=== PATIENT | female | born 1930 | race Caucasian/White ===

== ENCOUNTER 2019-03-11 17:27 | Inpatient (IN) ==
--- NOTE | 2019-03-11 17:56 | XRay Report ---
XR chest 1V portable CLINICAL HISTORY: SOB COMPARISON STUDY: 06/03/2018 FINDINGS: Postsurgical changes involve the left breast with left axillary and left breast surgical cl ips. There is a probable left breast implant. The heart is enlarged. The patient is hyperinflated. Th ere is no failure. There is no focal pulmonary consolidation. No pleural effusions are visualized.[ IMPRESSION: Mild cardiomegaly and hyperinflation. No active disease in the chest. Electronically signed by: James Kaba M.D. 03/11/2019 5:55 PM
[2019-03-11] MEDS ORDERED: NITROGLYCERIN 2% OINTMENT 30GM TUBE EXT STA (18:01)
[2019-03-11] MEDS ORDERED: NITROGLYCERIN SL 0.4 MG/TAB TAB SL STA (18:01)
[2019-03-11 18:06] LABS: Basophils # (auto) 0.04 K/uL (0-0.2); Basophils % (auto) 0.2 %; Eosinophils # (auto) 0.22 K/uL (0-0.5); Eosinophils % (auto) 1.2 %; Hematocrit (blood only) 41.9 % (37-47); Hemoglobin 14.1 g/dL (12.0-16.0); Immature Granulocytes # (auto) 0.05 K/uL (0.00-0.02); Immature Granulocytes % (auto) 0.3 %; Lymphocytes # (auto) 1.32 K/uL (1.2-3.4); Lymphocytes % (auto) 7.1 %; Mean Corpuscular Hgb Conc 33.7 g/dL (32-36); Mean Corpuscular Volume 90.3 fL (80-100); Mean Platelet Volume 9.1 fL (7.4-10.4); Monocytes # (auto) 1.34 K/uL (0.11-0.59); Monocytes % (auto) 7.3 %; Neutrophils % (auto) 83.9 %; Platelet Count 283 K/uL (130-400); RDW Standard Deviation 46.2 fL (36.4-46.3); Red Blood Count 4.64 M/uL (4.2-5.4); White Blood Count 18.47 K/uL (4.8-10.8)
[2019-03-11 18:25] LABS: Alanine Aminotransferase 15 U/L (12-78); Albumin Level 3.7 gm/dl (3.4-5.0); Aspartate Aminotransferase 13 U/L (15-37); BUN Creatinine Ratio 16.5 (10-20); Blood Urea Nitrogen 19 mg/dl (7-18); Calcium 9.9 mg/dl (8.5-10.1); Carbon Dioxide 27 mmol/L (21-32); Chloride 101 mmol/L (98-107); Est GFR (African American) 50.3; Est GFR (Non-African American) 43.4; Glucose 132 mg/dl (70-99); Potassium 3.8 mmol/L (3.5-5.1); Sodium 135 mmol/L (136-145)
[2019-03-11 18:45] LABS: Alkaline Phosphatase 93 U/L (45-117); Bilirubin,Total 0.5 mg/dl (0.2-1); Globulin 3.6 gm/dl (2.5-4.0); Total Protein 7.3 gm/dl (6.4-8.2); Troponin I 0.212 ng/ml (0-0.045)
[2019-03-11] MEDS: NITROGLYCERIN SL 0.4 MG/TAB TAB SL PRN ×2 (18:46→18:53)
[2019-03-11] MEDS ORDERED: fentaNYL citrate 100 MCG/2 ML VIAL ONE (19:21)
[2019-03-11] MEDS ORDERED: HEPARIN (PORCINE) 1000 UNIT/ML 10 ML (CATH LAB USE ONLY) ONE (19:21)
[2019-03-11] MEDS ORDERED: NiCARDipine HCL INJ 2.5 MG/ML 10 ML AMP ONE (19:21)
[2019-03-11] MEDS ORDERED: NITROGLYCERIN/D5W 100MCG/ML 20ML SYR ONE (19:22)
[2019-03-11] MEDS ORDERED: MIDAZOLAM HCL 1 MG/ML 2ML VIAL ONE (19:22)
--- NOTE | 2019-03-11 19:51 | Pre Anesthesia Assessment ---
Date of Service March 11, 2019 Pre Sedation Assessment Vital Signs Temp Pulse Resp BP Pulse Ox 03/11/19 19:30 66 20 153/68 H 96 03/11/19 19:22 69 27 H 96 03/11/19 19:21 70 26 H 132/95 97 03/11/19 19:00 63 23 123/54 L 91 03/11/19 18:30 74 20 164/70 H 95 03/11/19 18:11 81 21 165/112 H 98 03/11/19 18:09 79 22 98 03/11/19 18:00 80 24 178/85 H 97 03/11/19 17:46 84 L 03/11/19 17:43 93 03/11/19 17:33 97.9 F 81 18 171/82 H 93 Cardiovascular RRR, no murmur, no edema Respiratory normal respiratory effort, lungs clear to auscultation Pre-Sedation Airway Assessment Smoking Status: Never smoker Hx Sleep Apnea: No Hx Difficult Intubation: No Short, Thick Neck: No Thyromental Distance: > or= 3.5 Finger Breadths Mallampati Class: III ASA: ASA3 Procedure Planning Contraindications for Sedation: none Current Medications Reviewed: Yes Notes The planned sedation has been discussed with the patient. Informed Consent was obtained. I have identified the patient, determined the appropriateness of sedation and have assessed the patient immediately prior to the procedure. All medicine(s) and interventions are by my order.
--- NOTE | 2019-03-11 19:53 | Cardiology Consultation ---
Date of Consultation March 11, 2019 Assessment & Plan (1) Elevated troponin: 2. Suspected ACS 3. Coronary artery disease with prior inferior UT, ischemic cardiomyopathy 4. Paroxysmal atrial fibrillation on Eliquis 5. Hypertension Presentation concerning for acute UT and agree with proceeding with emergent cardiac catheterization and possible PCI. No apparent contraindications to procedure. Discussed risks, benefits, alternatives of procedure with patient and they are willing to proceed. Further recommendations pending findings of coronary angiography. History of Present Illness History of Present Illness Mrs. Lew is a 88-year-old history of coronary artery disease post prior inferior UT in 2007, ischemic heart myopathy with EF 4045% and residual inferior wall motion abnormality, moderate MR, paroxysmal atrial fibrillation, chronic left bundle branch block, hypertension, dyslipidemia who was seen emergently in the ED for concern for acute UT. Patient is followed by Dr. Mayo for her cardiac care was last seen in clinic 5 days ago. She currently resides at [facility]. Patient was in her usual state of health this afternoon when developed acute onset shortness of breath with mild diffuse chest pain. She presented to the ED was hypertensive to the 170s, requiring 4 L nasal cannula to maintain O2 sats in 90s, tachycardic to the 110s. EKG showed sinus rhythm with left bundle branch block and more acute peaked discordant ST changes anteriorly. Troponin elevated at 0.21. Given sublingual nitroglycerin in the ED with some improvement in symptoms but persistent chest pain radiating to back and heart alert activated. Allergies Allergy/AdvReac Type Severity Reaction Status Date / Time acetaminophen [From Lortab] Allergy Unknown Unverified 03/11/19 19:41 celecoxib [From Celebrex] Allergy Unknown Unverified 03/11/19 19:41 hydrocodone [From Lortab] Allergy Unknown Unverified 03/11/19 19:41 latex Allergy Unknown Unverified 03/11/19 19:41 ramipril [From Altace] Allergy Unknown Unverified 03/11/19 19:41 rosuvastatin [From Crestor] Allergy Unknown Unverified 03/11/19 19:41 simvastatin [From Zocor] Allergy Unknown Unverified 03/11/19 19:41 sotalol [From Betapace] Allergy Unknown Unverified 03/11/19 19:41 topiramate Allergy Unknown Unverified 03/11/19 19:41 verapamil Allergy Unknown Unverified 03/11/19 19:41 morphine AdvReac Nausea Verified 03/06/19 11:22 Patient History Medical History Ileus Ischemic cardiomyopathy LBBB (left bundle branch block) (Acute) Paroxysmal atrial fibrillation (Chronic) 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) CAD (coronary artery disease) GERD (gastroesophageal reflux disease) HTN (hypertension) (Chronic) Breast cancer Atrial fibrillation LBBB (left bundle branch block) Myocardial infarct Surgical History History of intestinal surgery (Resolved) History of parathyroid surgery (Resolved) Family History Other Family history non-contributory Social History Preferred Language: Congolese Communication Ability: Effective Revenue Specialist Required: No Beliefs That Will Affect Care: None marital status: / Current Living Situation: Personal Care Facility Feels Safe at Home: Yes Smoking Status: Never smoker Hx Alcohol Use: No Hx Substance Use: No Review of Systems Review of Systems: Not obtained in the setting of emergent situation Physical Exam Physical Exam: General: Uncomfortable HEENT: Sclerae anicteric, mucous membranes moist Lungs: Clear to auscultation few crackles at bases Cardiac: Regular rate and rhythm, 2/6 holosystolic murmur heard best at the apex Abdomen: Soft, nontender, nondistended, positive bowel sounds. Extremities: Warm, well perfused, no edema. 2+ radial pulses Skin: No rashes or lesions. Neuro: Nonfocal Psych: Alert orient x3, normal affect and mood Results & Data Vital Signs (Past 12 Hours) Vital Signs Temp Pulse Resp BP Pulse Ox 03/11/19 19:30 66 20 153/68 H 96 03/11/19 19:22 69 27 H 96 03/11/19 19:21 70 26 H 132/95 97 03/11/19 19:00 63 23 123/54 L 91 03/11/19 18:30 74 20 164/70 H 95 03/11/19 18:11 81 21 165/112 H 98 03/11/19 18:09 79 22 98 03/11/19 18:00 80 24 178/85 H 97 03/11/19 17:46 84 L 03/11/19 17:43 93 03/11/19 17:33 97.9 F 81 18 171/82 H 93 PG Care Time/CCT Total # of Minutes Spent Total Time Spent with Patient: Total time spent is greater than 50% in coordination of care (as documented) at patient's floor/unit and/or counseling patient:
--- NOTE | 2019-03-11 20:46 | Post Anesthesia Assessment ---
Date of Service March 11, 2019 Post Sedation Assessment Vital Signs Temp Pulse Resp BP Pulse Ox 03/11/19 19:30 66 20 153/68 H 96 03/11/19 19:22 69 27 H 96 03/11/19 19:21 70 26 H 132/95 97 03/11/19 19:00 63 23 123/54 L 91 03/11/19 18:30 74 20 164/70 H 95 03/11/19 18:11 81 21 165/112 H 98 03/11/19 18:09 79 22 98 03/11/19 18:00 80 24 178/85 H 97 03/11/19 17:46 84 L 03/11/19 17:43 93 03/11/19 17:33 97.9 F 81 18 171/82 H 93 Recovery Score Activity: Moves 4 extremities Respiration: Deep Breath/Cough Circulation: +/-20% PreAnes Value Consciousness: Fully Awake Oxygen Saturation: O2 needed for >90% Post Sedation Plan On clinical assessment, the patient appears to have tolerated the sedation without complications. Patient is recovering as anticipated. Patient will continue to be monitored by nursing and may be discharged when sedation discharge criteria are met per below protocol. Upon Completions of procedure and additional 15 minutes continue every 5 minute vital signs and the P.A.R. score; then discharge to a Phase I or Fast Track to Phase II per the following guidelines: * Discharge Patient to appropriate Phase II area if PAR is 8 or greater or return to pre- procedure baseline. The post - procedure orders will be as directed. * If PAR score is less than 8 or not return to pre-procedure baseline then patient will follow Phase I monitoring till PAR is reached for Phase II. The Phase I may be done in procedure room or may call to secure a Phase I area. * If naloxone or flumazenil are used for reversal, hold in Phase I for continued monitoring from when last reversal dose was given for a minimum of 60 minutes or longer pending the nurse and/or physician discretion of patient condition before discharge to Phase II. Please call the Sedation Physician to re-evaluate and complete post-note for discharge to Phase II area. Do NOT discharge from procedure sedation or Phase 1 until post- sedation evaluation note is complete by procedure /sedation MD Sedation Discharge Instructions to be given to the patient at discharge to home.
[2019-03-11] MEDS ORDERED: ONDANSETRON INJ 2 MG/ML 2 ML VIAL IV PRN (20:55)
[2019-03-11] MEDS ORDERED: ACETAMINOPHEN 325 MG TAB PO PRN (20:55)
--- NOTE | 2019-03-11 20:55 | Cardiac Catheterization ---
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 Cardiac Status Clinical evaluation leading to the procedure CAD Presenation: Non STEMI Anginal Classification: CCS IV Heart Failure: NYHA Class: CCS IV Cardiogenic Shock within 24 Hours: No Cardiac Arrest within 24 Hours: No Imaging Studies Past 6 Months: No Stress Studies Past 6 Months: No Diagnostic Physicians Name: Juan Mackenzie MD Status: Urgent Closure Device Percutaneous Entry Location: Radial Closure Device: Radial Band Recommendations: Medical Therapy and/or Counseling Intraprocedure Events Significant Disection: No Perforation: No Cardiac Cath Procedure Full Procedure Date March 11, 2019 Pre-Procedure Diagnosis Pre-Procedure Diagnosis: Acute Coronary Syndrome AUC Score AUC Score: 8 Post-Procedure Diagnosis Post-Procedure Diagnosis: Moderate CAD, Decreased LV Systolic Function and Normal Intracardiac Pressures Procedure(s) Performed Procedure(s) Performed: Coronary Angiography, Left Heart Cath and LV Angiography Geometry Teacher Juan Mackenzie MD Housekeeper Head(s) Lulu Estimated Blood Loss Estimated Blood Loss: 10 Medication(s) Medication(s): Fentanyl, Heparin, Lidocaine 1%, Nicardipine, Nitroglycerin and Versed Summary of Findings Indication: Suspected ACS Access: 6 Fr right radial artery Catheters: Thomas, pigtail Findings: LM -10 to 20% ostial stenosis, short length LAD -moderate caliber vessel, proximal luminal irregularities, 40% mid segment stenosis at takeoff of second diagonal, distal luminal irregularities as wraps around apex. Small first and second diagonal without significant disease. Circumflex -moderate caliber, mid segment luminal irregularities, OM1 with 40 to 50% proximal stenosis RCA -dominant, moderate caliber, 20 to 30% earlymid segment disease, distal luminal irregularities, small PDA without significant disease. LVEDP -5 LVEF 40 to 45%, apex is akinetic Arterial Closure: TR band Summary: 1. Mild to moderate nonobstructive coronary artery disease -40 to 50% proximal OM1 40% mid LAD at takeoff of second diagonal 20 to 30% earlymid RCA 2. Normal intracardiac filling pressure 3. Mild LV dysfunction, EF 40 to 45% with apical akinesis. 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 Recommendations: Admit to telemetry for further observation Trend troponin until peak Repeat echocardiogram in the a.m. Resume Eliquis tomorrow morning Continue losartan Add beta-dustin Assess need for additional diuretics tomorrow Continued ASCVD risk factor modification Hemodynamics Rest Ao:: 128/49/78 Final Ao: 151/50/89 LV: 152/5 Recommendations Recommendations: Medical Therapy and/or Counseling Specimens Specimens: None Radiation Exposure (mGy) 339 Contrast (mls) 65 Fluids (cc crystalloids) Fluids (cc crystalloids): 43 Drains Drains: None Anesthesia Moderate Procedural Complication(s) None Disposition PCU
[2019-03-11] MEDS ORDERED: SODIUM CHLORIDE 0.9% 500 ML IV SCH (21:00)
[2019-03-11] MEDS ORDERED: BENZONATATE 100 MG CAPSULE PO PRN (21:00)
[2019-03-11] MEDS ORDERED: NITROGLYCERIN SL 0.4 MG/TAB TAB SL PRN (21:00)
[2019-03-11] MEDS ORDERED: MAGNESIUM HYDROXIDE SUSP 30 ML UDC PO PRN (21:00)
[2019-03-11] MEDS ORDERED: guaiFENesin 600 MG TABCR PO PRN (21:00)
[2019-03-11] MEDS ORDERED: ALBUTEROL HFA 8 GM INHALER INH PRN (21:00)
[2019-03-11] MEDS ORDERED: DOCUSATE SODIUM 100 MG CAP PO PRN (21:00)
[2019-03-11] MEDS: METOPROLOL TARTRATE 25 MG TAB PO SCH (22:54)
[2019-03-11] MEDS: FLUTICASONE PROPIONATE NA SPR 16 GM BTL SCH (22:54)
[2019-03-11] MEDS: MONTELUKAST SODIUM 10 MG TABLET PO SCH (22:54)
--- NOTE | 2019-03-11 22:59 | Emergency Department Note ---
Entered by Kylah Pritchett acting as a scribe for ED Provider Note CHIEF COMPLAINT: Shortness of Breath HISTORY OF PRESENT ILLNESS: The patient is an 88 year old female who presents to the Emergency Room with complaints of shortness of breath that started about 2 hours [employer]. She does not wear O2 regularly, but was placed on it for comfort by EMS. She also complains of left sided chest and back pain. Her son states she has had 1 heart attack previously. She does take daily Eliquis. Her son also notes she was recently seen in the ED for bloating and constipation, but the patient states her abdomen feels better. Pt denies LOC, headache, fevers, chills, diaphoresis, visual changes, neck pain, nausea, vomiting, abdominal pain, diarrhea, melena, hematochezia, urinary symptoms, numbness, weakness, lymphadenopathy, rash, or other complaints. REVIEW OF SYSTEMS: See HPI for pertinent positives and negatives. A total of ten systems were reviewed and were otherwise negative. PMHx/PSHx: CAD. GERD. HTN. Breast cancer. Atrial fibrillation. SOCIAL HISTORY: Patient lives at home. PHYSICAL EXAM: GENERAL: Awake, alert, uncomfortable and dyspneic-appearing HENT: Normocephalic, atraumatic. Oropharynx unremarkable. EYES: PERRL. Normal conjunctiva. Sclera non-icteric. NECK: Inspection normal. Non-tender. Supple. No nuchal rigidity. FROM. No masses. RESPIRATORY: Clear to auscultation. No wheezes. No rales. Increased respiratory effort. CARDIAC: Normal rate. Normal rhythm. No murmurs. No rubs. Extremities warm and well perfused. Pulses equal. No JVD. GI: Soft, mild distension. No tenderness to palpation. No rebound or guarding. No masses. RECTAL: Deferred. MUSCULOSKELETAL: Atraumatic. Chest examination reveals no tenderness. The back is symmetrical on inspection without obvious abnormality. There is no CVA tenderness to palpation. No joint edema. LOWER EXTREMITIES: Calves are equal size bilaterally and non-tender. No edema. No discoloration. NEURO: Normal sensorium. No sensory or motor deficits noted. SKIN: No rash or jaundice noted. EMERGENCY DEPARTMENT COURSE: 1758: Past medical records reviewed. The patient was evaluated in room B7, and a complete history and physical examination were performed. 1820: I reevaluated the patient. She states the Nitro has provided some relief. 1820: I discussed the patients case with Dr. Mackenzie, [facility]. He recommends we try to get the patient pain free and call him back if her Troponin is elevated. 1901: I reevaluated the patient. Her pain is better but she is still short of breath. Her Troponin is elevated. Dr. Mackenzie will take her to the microbiology lab technician. MEDICAL DECISION MAKING: Prior records/ancillary studies reviewed. Triage Nursing notes reviewed and agree them. Additional history obtained from the family. The patient's history was concerning for chest pain. Differential diagnosis: Etiologies such as cardiac ischemia, aortic dissection, pulmonary embolism, pneumonia, pneumothorax, musculoskeletal, infections, pericarditis, myocarditis, esophageal rupture, gastrointestinal, as well as others were entertained. Physical examination: As above. ER treatment provided: Supplemental oxygen Nitropaste Sublingual nitroglycerin x3 with incremental improvement to resolution of chest pain. On reassessment the patient felt better. Diagnostic interpretation by me: The electrocardiogram was concerning for acute coronary syndrome in the presence of left bundle branch block by Sgarbossa criteria. Repeat ECG after nitroglycerin and improvement of pain revealed less pronounced ST elevation. 30 ECG was performed after resolution of chest pain with the presence of some mild back pain. ST elevation was resolved. The labs revealed an unremarkable chemistry panel. Patient CBC showed a significant leukocytosis. Troponin was elevated concerning for ACS. Imaging studies: Chest imaging did not reveal any acute disease. Given the patient's presentation, her history and the abnormal ECG as noted above I did consult with Dr. Mackenzie of interventional cardiology. Given the pain and elevated troponin he felt the patient should be treated as a heart alert. Heart alert was called. The team including Dr. Mackenzie evaluated the patient in the emergency department and she was taken emergently to the catheterization suite for further management. Patient and family were pleased with the treatment and she was admitted for further management. IMPRESSION: Acute AL. Elevated troponin Abnormal ECG PLAN: Admit The scribe's documentation has been prepared under my direction and personally reviewed by me in its entirety. I confirm that the note above accurately reflects all work, treatment, procedures, and medical decision making performed by me. CRITICAL CARE: I have personally spent greater than 45 minutes of critical care time in the direct management of this patient. This includes bedside care, interpretation of diagnostic studies, and testing, discussion with consultants, patient, and family members, and other required patient management activities. This 45 minutes is in excess of all separately billable procedures. 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: No Beliefs That Will Affect Care: None marital status: / Current Living Situation: Personal Care Facility Other Information That Helps Us Care for You: No Feels Safe at Home: Yes Safety Concerns: Feels Safe At This Time Smoking Status: Never smoker Hx Alcohol Use: No Hx Substance Use: No Results & Data Vital Signs Vital Signs - 24 hr 03/11/19 17:33 03/11/19 17:43 03/11/19 17:46 Temperature 36.6 C Temperature Source Oral Sepsis Recent Fever Within 48 Hours No Sepsis New/Unexplained Change in Mental Status No Sepsis Action Taken by Nursing No Action Required Pulse Rate 81 Pulse Rate from SpO2 Sensor Respiratory Rate 18 Respiratory Effort / Characteristics Non-Labored Respiratory Depth Normal Blood Pressure 171/82 H Blood Pressure Mean 111 Pulse Oximetry 93 93 84 L Oxygen Delivery Method Room Air Room Air Oxygen Flow Rate 03/11/19 18:00 03/11/19 18:09 03/11/19 18:11 Temperature Temperature Source Sepsis Recent Fever Within 48 Hours Sepsis New/Unexplained Change in Mental Status Sepsis Action Taken by Nursing Pulse Rate 80 79 81 Pulse Rate from SpO2 Sensor 80 81 80 Respiratory Rate 24 22 21 Respiratory Effort / Characteristics Respiratory Depth Blood Pressure 178/85 H 165/112 H Blood Pressure Mean 116 129 Pulse Oximetry 97 98 98 Oxygen Delivery Method Nasal Cannula Oxygen Flow Rate 4 03/11/19 18:30 03/11/19 19:00 03/11/19 19:21 Temperature Temperature Source Sepsis Recent Fever Within 48 Hours Sepsis New/Unexplained Change in Mental Status Sepsis Action Taken by Nursing Pulse Rate 74 63 70 Pulse Rate from SpO2 Sensor 75 62 71 Respiratory Rate 20 23 26 H Respiratory Effort / Characteristics Respiratory Depth Blood Pressure 164/70 H 123/54 L 132/95 Blood Pressure Mean 101 77 107 Pulse Oximetry 95 91 97 Oxygen Delivery Method Nasal Cannula Oxygen Flow Rate 4 03/11/19 19:22 03/11/19 19:30 Temperature Temperature Source Sepsis Recent Fever Within 48 Hours Sepsis New/Unexplained Change in Mental Status Sepsis Action Taken by Nursing Pulse Rate 69 66 Pulse Rate from SpO2 Sensor 68 66 Respiratory Rate 27 H 20 Respiratory Effort / Characteristics Respiratory Depth Blood Pressure 153/68 H Blood Pressure Mean 96 Pulse Oximetry 96 96 Oxygen Delivery Method Oxygen Flow Rate Home Medications Current Medication List: was personally reviewed by me Laboratory Data Attestation: I reviewed the patient's lab results. Result diagrams: 03/11/19 17:57 03/11/19 17:57 Lab Results 03/11/19 03/11/19 Range/Units 17:57 17:57 WBC 18.47 H (4.8-10.8) K/uL RBC 4.64 (4.2-5.4) M/uL Hgb 14.1 (12.0-16.0) g/dL Hct 41.9 (37-47) % MCV 90.3 (80-100) fL MCH 30.4 (25-34) pg MCHC 33.7 (32-36) g/dL RDW Std Deviation 46.2 (36.4-46.3) fL RDW Coeff of Joaquín 14.0 (11.5-14.5) % Plt Count 283 (130-400) K/uL MPV 9.1 (7.4-10.4) fL Immature Gran % (Auto) 0.3 % Neut % (Auto) 83.9 % Lymph % (Auto) 7.1 % [place] % (Auto) 7.3 % Eos % (Auto) 1.2 % Baso % (Auto) 0.2 % Immature Gran # (Auto) 0.05 H (0.00-0.02) K/uL Neut # (Auto) 15.50 H (1.4-6.5) K/uL Lymph # (Auto) 1.32 (1.2-3.4) K/uL [place] # (Auto) 1.34 H (0.11-0.59) K/uL Eos # (Auto) 0.22 (0-0.5) K/uL Baso # (Auto) 0.04 (0-0.2) K/uL Sodium 135 L (136-145) mmol/L Potassium 3.8 (3.5-5.1) mmol/L Chloride 101 (98-107) mmol/L Carbon Dioxide 27 (21-32) mmol/L Anion Gap 8.0 (3-11) BUN 19 H (7-18) mg/dl Creatinine 1.13 (0.6-1.2) mg/dl Est Cr Clr Drug Dosing Not Reportable Est GFR ( Amer) 50.3 Est GFR (Non-Af Amer) 43.4 BUN/Creatinine Ratio 16.5 (10-20) Glucose 132 H (70-99) mg/dl Calcium 9.9 (8.5-10.1) mg/dl Total Bilirubin 0.5 (0.2-1) mg/dl AST 13 L (15-37) U/L ALT 15 (12-78) U/L Alkaline Phosphatase 93 (45-117) U/L Troponin I 0.212 H* (0-0.045) ng/ml Total Protein 7.3 (6.4-8.2) gm/dl Albumin 3.7 (3.4-5.0) gm/dl Globulin 3.6 (2.5-4.0) gm/dl Albumin/Globulin Ratio 1.0 (0.9-2) Lipase 165 (73-393) U/L Administered Medications Fluticasone Propionate (Flonase) 2 sprays NA HS [facility] Stop: 04/10/19 20:59 Last Admin: 03/11/19 22:54 Dose: 2 sprays Documented by: [id number] Sodium Chloride (Nss) 500 mls @ 75 mls/hr IV .[id number] DEANDRA Stop: 03/12/19 03:39 Last Admin: 03/11/19 22:11 Dose: 75 mls/hr Documented by: [id number] Metoprolol Tartrate (Lopressor) 25 mg PO BID DEANDRA Stop: 04/10/19 20:59 Last Admin: 03/11/19 22:54 Dose: 25 mg Documented by: [id number] Montelukast Sodium (Singulair) 10 mg PO PM DEANDRA Stop: 04/10/19 20:59 Last Admin: 03/11/19 22:54 Dose: 10 mg Documented by: [id number] Nitroglycerin (Nitrostat) 0.4 mg SL PRN PRN PRN Reason: Chest Pain Stop: 04/10/19 18:36 Last Admin: 03/11/19 18:53 Dose: 0.4 mg Documented by: [id number] Admin: 03/11/19 18:46 Dose: 0.4 mg Documented by: [id number] Discontinued Medications Fentanyl Citrate (Fentanyl Citrate) Confirm Administered Dose 100 mcg .ROUTE .STK-MED ONE Stop: 03/11/19 19:22 Last Admin: 03/11/19 21:17 Dose: Not Given Documented by: [id number] Heparin Sodium (Porcine) (Heparin Iv Bolus (Glass Designer Use Only)) Confirm Adminis tered Dose 10,000 units .ROUTE .STK-MED ONE Stop: 03/11/19 19:22 Last Admin: 03/11/19 21:16 Dose: Not Given Documented by: [id number] Heparin Sodium/Sodium Chloride (Heparin/Nss 1000 Unit/500ml Flush Bag) Confirm Administered Dose 3,000 units IV .STK-MED ONE Stop: 03/11/19 19:23 Last Admin: 03/11/19 21:16 Dose: Not Given Documented by: [id number] Midazolam HCl (Versed) Confirm Administered Dose 2 mg .ROUTE .STK-MED ONE Stop: 03/11/19 19:23 Last Admin: 03/11/19 21:16 Dose: Not Given Documented by: [id number] Nicardipine HCl (Cardene) Confirm Administered Dose 25 mg .ROUTE .STK-MED ONE Stop: 03/11/19 19:22 Last Admin: 03/11/19 21:17 Dose: Not Given Documented by: [id number] Nitroglycerin (Nitrostat) 0.4 mg SL NOW STA Stop: 03/11/19 18:02 Last Admin: 03/11/19 18:09 Dose: 0.4 mg Documented by: [id number] Nitroglycerin (Nitro-Bid 2%) 0.5 inch EXT NOW STA Stop: 03/11/19 18:02 Last Admin: 03/11/19 18:10 Dose: 0.5 inch Documented by: [id number] Nitroglycerin/Dextrose (Nitroglycerin/D5w 100 Mcg/Ml 20ml Syringe) Confirm Administered Dose 2,000 mcg .ROUTE .STK-MED ONE Stop: 03/11/19 19:23 Last Admin: 03/11/19 21:16 Dose: Not Given Documented by: [id number] Imaging Data Radiologist's Impression: Radiology results as stated below per my review and t he radiologist's interpretation: XR chest 1V portable CLINICAL HISTORY: SOB COMPARISON STUDY: 06/03/2018 FINDINGS: Postsurgical changes involve the left breast with left axillary and left breast surgical clips. There is a probable left breast implant. The heart is enlarged. The patient is hyperinflated. There is no failure. There is no focal pulmonary consolidation. No pleural effusions are visualized. IMPRESSION: Mild cardiomegaly and hyperinflation. No active disease in the chest. Electronically signed by: James Kaba M.D. 03/11/2019 5:55 PM ECG Data Attestation: I personally reviewed and interpreted this ECG as follows: Indication: SOB/dyspnea Rate (beats per minute): 87 Rhythm: sinus rhythm Findings: + 1st degree AV block, + LBBB and + ST elevation (greater than 5 mm in anterior leads and v1, concering for Sgarbossa's criteria ) Additional Comments: 2nd EKG: Sinus rhythm, rate of 72, 1st degree AV, LBBB. Wh en compared to previous, there is improvement of ST segments. Blood Pressure Blood Pressure Findings: Elevated blood pressure Blood Pressure Disposition: further management by hospitalist Discharge Plan Visit Data *Final* Discharge Date/Time: 03/11/19 19:40 Chief Complaint: Shortness of Breath/Dyspnea Stated Complaint: SOB, PAIN ON LEFT SIDE UNDER SHOULDER ED Provider: Alfredito Vaz Discharge Problem: Acute AL Patient Disposition: Admitted As Inpatient Discharge Instructions Interventions: ED Discharge Assessment Last Done: 03/11/19 19:40 The scribe's documentation has been prepared under my direction and personally reviewed by me in its entirety. I confirm that the note above accurately reflects all work, treatment, procedures, and medical decision making performed by me.
[2019-03-12 02:58] LABS: Basophils # (auto) 0.03 K/uL (0-0.2); Basophils % (auto) 0.2 %; Eosinophils # (auto) 0.07 K/uL (0-0.5); Eosinophils % (auto) 0.5 %; Hematocrit (blood only) 36.5 % (37-47); Hemoglobin 12.2 g/dL (12.0-16.0); Immature Granulocytes # (auto) 0.03 K/uL (0.00-0.02); Immature Granulocytes % (auto) 0.2 %; Lymphocytes # (auto) 1.31 K/uL (1.2-3.4); Lymphocytes % (auto) 10.1 %; Mean Corpuscular Hgb Conc 33.4 g/dL (32-36); Mean Corpuscular Volume 88.8 fL (80-100); Mean Platelet Volume 8.9 fL (7.4-10.4); Monocytes # (auto) 0.89 K/uL (0.11-0.59); Monocytes % (auto) 6.8 %; Neutrophils % (auto) 82.2 %; Platelet Count 251 K/uL (130-400); RDW Coefficient of Variation 13.9 % (11.5-14.5); RDW Standard Deviation 45.3 fL (36.4-46.3); Red Blood Count 4.11 M/uL (4.2-5.4); White Blood Count 13.03 K/uL (4.8-10.8)
[2019-03-12 03:17] LABS: BUN Creatinine Ratio 17.9 (10-20); Calcium 9.1 mg/dl (8.5-10.1); Creatinine Clr Calc Pharmacy 37.8 ml/min; Est GFR (African American) 58.3; Est GFR (Non-African American) 50.3; Potassium 3.9 mmol/L (3.5-5.1)
[2019-03-12 03:27] LABS: Troponin I 0.51 ng/ml (0-0.045)
[2019-03-12] MEDS: LEVOTHYROXINE SODIUM 88 MCG TABLET PO SCH (05:57)
--- NOTE | 2019-03-12 06:54 | History and Physical Report ---
DATE OF ADMISSION: 03/12/2019 CHIEF COMPLAINT: Chest pain, shortness of breath, non-ST elevated myocardial infarction, status post cardiac catheterization. HISTORY OF PRESENT ILLNESS: This is an 88-year-old female with past medical history significant for chronic systolic CHF with EF of 40-45%, paroxysmal atrial fibrillation, on Eliquis, hypertension, nonocclusive CAD, chronic left bundle-branch block, breast cancer on left side status post surgery, history of right hip fracture and status post surgery. The patient is from [facility]. She got shortness of breath and chest discomfort around 3:00 p.m. yesterday. Pain is moderate to severity, but shortness of breath was more concerning and she came to the ER. Pain in the chest radiating to back. In the ER, she was hypoxic and required oxygen and she was tachycardic. She says she was sweating when she was coming here. No nausea, no headache, no dizziness, no fever, no chills. EKG done in the ER showed left bundle-branch block and ST changes anteriorly. Troponin was elevated at 0.21. Sublingual nitroglycerin was given in the ER with some improvement of symptoms, but because of persistent chest pain and elevated troponin heart alert was activated and the patient is status post cardiac catheterization, which showed mild to moderate nonobstructive coronary artery disease, 40-50% proximal OM, 40% mid LAD at takeoff of second diagonal, 20-30% mid RCA. EF was 40-45% with apical akinesis. 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 Resting comfortably and hemodynamically stable. No nausea, no vomiting, no abdominal pain. Normal bowel and bladder movements. No blood in stool or black stools. No hematuria or dysuria. No swelling in the legs, no rash. She ambulates okay. After hip fracture, she used a walker and cane, but right now she is walking independently. ALLERGIES: CELEBREX, LATEX, MORPHINE, NORCO, RAMIPRIL, ROSUVASTATIN, SIMVASTATIN, SOTALOL, TOPAMAX, VERAPAMIL. PAST MEDICAL HISTORY: As mentioned above. PAST SURGICAL HISTORY: Tonsillectomy, hysterectomy, bowel surgery, left mastectomy, hip fracture surgery. FAMILY HISTORY: Heart disease. SOCIAL HISTORY: Nonsmoker. No alcohol use. 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 MEDICATIONS: The patient is on Tylenol 650 mg p.o. q. 4 hours p.r.n., albuterol 2 puffs inhalation q. 4 hours p.r.n., amiodarone 200 mg p.o. daily, amlodipine 5 mg p.o. daily, amoxicillin as directed, ascorbic acid 1000 mg p.o. daily, Lipitor 40 mg p.o. daily, benzoate 100 mg p.o. t.i.d. p.r.n., vitamin D 2000 units p.o. daily, vitamin B12 1000 mcg p.o. daily, Mucinex DM 1 tablet p.o. q. 12 hours p.r.n., Dulcolax 200 mg p.o. daily p.r.n., Eliquis 2.5 mg p.o. b.i.d., Lexapro 10 mg p.o. daily, fluticasone propionate intranasal bedtime, Lasix 40 mg p.o. daily, levothyroxine 88 mcg p.o. daily, loratadine 10 mg p.o. daily, losartan 100 mg p.o. daily, magnesium oxide/magnesium chloride 64 mg p.o. b.i.d., milk of magnesia p.r.n., montelukast 10 mg p.o. q.p.m., nitroglycerin 0.4 mg sublingual p.r.n., Protonix 40 mg p.o. daily, potassium chloride 10 mEq p.o. b.i.d., Zantac 150 mg p.o. b.i.d. p.r.n., Ranexa 500 mg p.o. b.i.d. PHYSICAL EXAMINATION: GENERAL: The patient is alert and oriented, not in acute distress. VITAL SIGNS: Temperature 36.5, pulse 50, respiratory rate 22, blood pressure 140/57, oxygen 93% on room air. HEENT: No pallor, no icterus. NECK: No JVD, no neck masses. No carotid bruits. CARDIOVASCULAR: S1, S2 heard, regular rate and rhythm, no murmur, no gallop. RESPIRATORY SYSTEM: Normal AP diameter. No thyromegaly. No wheezing, no crackles. ABDOMEN: Soft, bowel sounds present, nontender. No distention. CENTRAL NERVOUS SYSTEM: Cranial nerves II-XII grossly intact. Nonfocal. EXTREMITIES: Right wrist dressing intact and no drainage seen. No lower extremity edema or erythema seen. LABORATORIES DATA: WBC 13, hemoglobin 12.2, hematocrit 36.5, platelets 251. Sodium 139, potassium 3.9, chloride 105, bicarbonate 28, BUN 18, creatinine 1, serum glucose 92, calcium 9.1, total bilirubin 0.5, AST 13, ALT 15, alkaline phosphatase 93. Troponin 0.2. Lipase 165. Chest x-ray, mild cardiomegaly and hyperinflation. No active disease in the chest. EKG: Initial EKG showing sinus rhythm with first degree AV block at a rate of 70 with left bundle-branch block. ASSESSMENT AND PLAN: This is an 88-year-old female presents with chest pain. 1. Chest pain, non-ST elevated myocardial infarction with elevated troponin of and some questionable EKG changes, status post emergent cardiac catheterization, which showed nonobstructive disease with 40-50% proximal ostial, 40% mid LAD, takeoff of second diagonal, 20-30% mid RCA lesions. Medical management recommended. Beta dustin was added to the regimen. She is already on losartan and Lipitor. 2. History of chronic systolic congestive heart failure, last echo was 40-45% ejection fraction. Currently, Lasix on hold. On losartan. Monitor for any volume overload. 3. History of paroxysmal atrial fibrillation, currently in sinus rhythm, on amiodarone and Eliquis. Beta dustin added. 4. Gastroesophageal reflux disease, on Protonix b.i.d., Zantac p.r.n. 5. Hypertension, on Norvasc, losartan. Currently, B dustin added and amlodipine on hold. 6. Hypothyroidism, on Synthroid. 7. Deep venous thrombosis prophylaxis, sequential compression devices for now. DISPOSITION: Closely monitor in tele floor. Expect to discharge back to [facility] when patient is stable. Social Service to help with discharge planning. [facility]
[2019-03-12] MEDS: CHOLECALCIFEROL 1,000 UNITS TAB PO SCH (07:59)
[2019-03-12] MEDS: ATORVASTATIN 10 MG TAB PO SCH (08:00)
[2019-03-12] MEDS: PANTOprazole 40 MG TAB PO SCH (08:01)
[2019-03-12] MEDS: AMIODARONE 200 MG TAB PO SCH (08:01)
[2019-03-12] MEDS: ASCORBIC ACID 500 MG TAB PO SCH (08:01)
[2019-03-12] MEDS: APIXABAN 2.5 MG TAB PO SCH ×2 (08:01→20:13)
[2019-03-12] MEDS: ESCITALOPRAM OXALATE 10 MG TAB PO SCH (08:01)
[2019-03-12] MEDS: LORATADINE 10 MG TAB PO SCH (08:01)
[2019-03-12] MEDS: LOSARTAN POTASSIUM 50 MG TAB PO SCH (08:01)
[2019-03-12] MEDS: METOPROLOL TARTRATE 25 MG TAB PO SCH ×2 (08:02→20:34)
[2019-03-12] MEDS: CYANOCOBALAMIN 500 MCG TABLET (VITAMIN B-12) PO SCH (08:02)
--- NOTE | 2019-03-12 10:04 | Cardiology Progress Note ---
Date of Service March 12, 2019 Assessment & Plan (1) Elevated troponin: Suggestive of an acute coronary syndrome, however, coronary anatomy showed no obstructive lesion. Consider takotsubo syndrome. Metoprolol has been added to her medical regimen, however, she demonstrates significant bradycardia. This medication may not be well tolerated. (2) CAD (coronary artery disease): Catheterization noted to be 10-20% left main, 40% mid LAD, 40-50% OM1, and a 20-30% mid RCA. (3) Ischemic cardiomyopathy: Left ventricular ejection fraction moderately depressed at 35-40% with apical akinesis and inferior hypokinesis. Previous ejection fraction estimated at 40-45% with apical akinesis. Will likely repeat an echocardiogram as an outpatient. (4) LBBB (left bundle branch block): Chronic finding. (5) Paroxysmal atrial fibrillation: Tolerating rhythm control with amiodarone, and anticoagulation with adjusted Eliquis without difficulty. Subjective The patient is resting comfortably in the bedside chair without complaints of chest pain or dyspnea. Her son, Sanju, is at the bedside. Physical Exam Physical Exam: In general this is a well-developed well-nourished white female in no acute distress. HEENT exam is negative. Neck is supple with full carotid upstrokes. There are no carotid bruits. Jugular venous pressure is flat at 90. There is no thyromegaly. Cardiovascular exam reveals a regular rhythm with a normal S1 and S2. No S3, S4, or murmurs are noted. Lungs are clear without rales, rhonchi, or wheezes. Abdomen is soft and nontender without bruits. Extremities reveal intact radial artery and posterior tibial pulses bilaterally. There is no peripheral edema. Results & Data Vital Signs (Past 12 Hours) Vital Signs Temp Pulse Resp BP Pulse Ox 03/12/19 09:00 49 L 20 94 03/12/19 08:00 37.1 C 49 L 20 177/73 H 94 03/12/19 04:00 36.8 C 50 L 18 153/59 H 95 03/12/19 02:40 50 L 22 145/57 H 93 03/12/19 01:40 46 L 18 144/64 H 94 03/12/19 00:40 36.5 C 52 L 20 122/51 L 93 03/11/19 23:40 54 L 18 144/57 H 92 03/11/19 22:40 60 20 141/64 H 95 03/11/19 22:10 61 14 170/76 H 95 Laboratory Results Troponin I level on presentation was 0.212 with a follow-up of 0.51. Diagnostic Findings Echocardiogram noted moderate left renal dysfunction with ejection fraction of 35-40%. There is apical akinesis and inferior hypokinesis. Mild aortic and [id number] mitral regurgitation also noted. PG Care Time/CCT Total # of Minutes Spent Total Time Spent with Patient: Total time spent is greater than 50% in coordination of care (as documented) at patient's floor/unit and/or counseling patient:
[2019-03-12] MEDS ORDERED: COUGH DROP (SUGAR FREE) LOZ 24 LOZ/1 BOX BUCCAL PRN (10:12)
--- NOTE | 2019-03-12 10:23 | Hospitalist Progress Note ---
Date of Service March 12, 2019 Assessment & Plan (1) Chest pain: resolved overnight, no pain since heart cath (2) Elevated troponin: 0.2 to 0.5 back to 0.209. ? demand ischemia in setting of cardiomyoapthy, apprec cards input (3) CAD (coronary artery disease): known nonobstructive CAD, cont medical management (4) Ischemic cardiomyopathy: has a h/o this with EF 40-45% now depressed EF to 35-40% with worsening apical akinesis on TTE. Appreciate cards input. Suggest Lopressor change to Toprol XL as tolerated with noted bradycardia. Cont Cozaar, Lipitor. Furosemide currently on hold. Will plan to restart in am if she is looking well. Cont daily weights and low salt diet. (5) LBBB (left bundle branch block): chronic (6) Paroxysmal atrial fibrillation: rate controlled with Lopressor, some bradycardia noted on telemetry this am and Lopressor was held. Maintained in sinus rhythm on amio. Fern (7) DVT prophylaxis: Fern Full Dispo-still fatigued, would like to have ID and pulm see her regarding persistent fatigue and imaging findings consistent with possible MAC. Unsure if this would have caused her pain but may explain her cough and fatigue. Hafsa [facility] Subject[facility] 88 [facility] F presented to the ER yesterday for acute shortness of breath and chest pain. 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 Nit ro had been given. Cath revealed nonobstructive disease and today she is feeling well and denies pain or SOB. Denies palpitations, GI symptoms, nausea, difficulties eating, fevers, chills, night sweats, weight loss. On arrival to ER for what turned out to be constipation last week, a CT a/p revealed inflammation in the lungs possibly consistent with a MAC infection. The patient reports a chronic cough for >1 year despite claritin use and currently reports a dry irritating cough. She reports significant fatigue today. No ACEI on board. Requests lozenges. Lives at [facility]. Review of Systems Review of Systems: All systems reviewed & are unremarkable except as noted in HPI & below Physical Exam Physical Exam: CONSTITUTIONAL: thin, vitals as above, generally fatigued- appearing EYES: normal conjunctivae, no scleral icterus ENT: oropharynx clear, MMM RESPIRATORY: crackles at bases bilaterally, no rales or wheezes, normal respiratory effort CARDIOVASCULAR: regular rate and rhythm, S1 and 2 heard without murmurs, gallops or rubs, no JVD, no peripheral edema GASTROINTESTINAL: normal bowel sounds, soft, nontender, protuberance to abdomen but it is not distended MUSCULOSKELETAL: strength intact throughout, head is normocephalic and atraumatic SKIN: warm and dry NEUROLOGIC: No facial palsy, no dysarthria. CN 2-12 grossly intact, no sensory deficit, normal cognition, normal speech, no gross focal deficits. PSYCHIATRIC: alert cooperative and oriented to person, place and time. Results & Data Vital Signs (Past 12 Hours) Vital Signs Temp Pulse Resp BP Pulse Ox 03/12/19 09:00 49 L 20 94 03/12/19 08:00 37.1 C 49 L 20 177/73 H 94 03/12/19 04:00 36.8 C 50 L 18 153/59 H 95 03/12/19 02:40 50 L 22 145/57 H 93 03/12/19 01:40 46 L 18 144/64 H 94 03/12/19 00:40 36.5 C 52 L 20 122/51 L 93 03/11/19 23:40 54 L 18 144/57 H 92 03/11/19 22:40 60 20 141/64 H 95 Laboratory Results Short CBC 03/11/19 03/12/19 Range/Units 17:57 02:45 WBC 18.47 H 13.03 H (4.8-10.8) K/uL Hgb 14.1 12.2 (12.0-16.0) g/dL Hct 41.9 36.5 L (37-47) % Plt Count 283 251 (130-400) K/uL BMP 03/11/19 03/12/19 17:57 02:45 Sodium 135 L 139 Potassium 3.8 3.9 Chloride 101 105 Carbon Dioxide 27 28 BUN 19 H 18 Creatinine 1.13 1.00 Glucose 132 H 92 Calcium 9.9 9.1 Cardiac Enzymes 03/11/19 03/12/19 03/12/19 Range/Units 17:57 02:45 08:48 Troponin I 0.212 H* 0.510 H* 0.209 H* (0-0.045) ng/ml Liver Function 03/11/19 Range/Units 17:57 Total Bilirubin 0.5 (0.2-1) mg/dl AST 13 L (15-37) U/L ALT 15 (12-78) U/L Alkaline Phosphatase 93 (45-117) U/L Albumin 3.7 (3.4-5.0) gm/dl Diagnostic Findings CT a/p: IMPRESSION: 1. Moderate stool burden in mildly distended colon is evidence of constipation. 2. Predominantly extrahepatic biliary ductal dilatation. Choledocholithiasis is not excluded. The gallbladder is distended likely on a physiologic basis and without CT evidence of cholecystitis. A right upper quadrant ultrasound could evaluate for cholelithiasis. 3. 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 4. Mild cardiomegaly. Medications Administered Current Inpatient Medications Acetaminophen (Tylenol) 650 mg PO Q4H PRN PRN Reason: Mild Pain (scale 1-3) Stop: 04/10/19 20:54 Albuterol (Ventolin Hfa) 2 puffs INH Q4H PRN PRN Reason: Cough/Shortness of Breath Stop: 04/10/19 20:59 Amiodarone HCl (Cordarone) 200 mg PO DAILY [facility]; Protocol Stop: 04/11/19 08:59 Last Admin: 03/12/19 08:01 Dose: 200 mg Documented by: Apixaban (Eliquis) 2.5 mg PO BID [facility] Stop: 04/11/19 08:59 Last Admin: 03/12/19 08:01 Dose: 2.5 mg Documented by: Ascorbic Acid (Vitamin C) 1,000 mg PO DAILY [facility] Stop: 04/11/19 08:59 Last Admin: 03/12/19 08:01 Dose: 1,000 mg Documented by: Atorvastatin Calcium (Lipitor) 10 mg PO DAILY [facility] Stop: 04/11/19 08:59 Last Admin: 03/12/19 08:00 Dose: 10 mg Documented by: Benzonatate (Tessalon Perle) 100 mg PO TID PRN PRN Reason: cough Stop: 04/10/19 20:59 Cyanocobalamin (Vitamin B-12) 1,000 mcg PO DAILY [facility] Stop: 04/11/19 08:59 Last Admin: 03/12/19 08:02 Dose: 1,000 mcg Documented by: Docusate Sodium (Colace) 200 mg PO DAILY PRN PRN Reason: Constipation Stop: 04/10/19 20:59 Escitalopram Oxalate (Lexapro Tab) 10 mg PO DAILY DEADNRA Stop: 04/11/19 08:59 Last Admin: 03/12/19 08:01 Dose: 10 mg Documented by: Fluticasone Propionate (Flonase) 2 sprays NA HS DEANDRA Stop: 04/10/19 20:59 Last Admin: 03/11/19 22:54 Dose: 2 sprays Documented by: Guaifenesin (Mucinex) 1 mg PO Q12H PRN PRN Reason: cough/ congestion Levothyroxine Sodium (Synthroid) 88 mcg PO DAILYBB DEANDRA Stop: 04/11/19 06:29 Last Admin: 03/12/19 05:57 Dose: 88 mcg Documented by: Loratadine (Claritin) 10 mg PO DAILY DEANDRA Stop: 04/11/19 08:59 Last Admin: 03/12/19 08:01 Dose: 10 mg Documented by: Losartan Potassium (Cozaar) 100 mg PO DAILY DEANDRA Stop: 04/11/19 08:59 Last Admin: 03/12/19 08:01 Dose: 100 mg Documented by: Magnesium Hydroxide (Milk Of Magnesia) 15 ml PO DAILY PRN PRN Reason: Constipation Stop: 04/10/19 20:59 Menthol (Nice) 1 patience BUCCAL Q4H PRN PRN Reason: throat irritation Stop: 04/11/19 10:11 Metoprolol Tartrate (Lopressor) 25 mg PO BID DEANDRA Stop: 04/10/19 20:59 Last Admin: 03/12/19 08:02 Dose: Not Given Documented by: Montelukast Sodium (Singulair) 10 mg PO PM DEANDRA Stop: 04/10/19 20:59 Last Admin: 03/11/19 22:54 Dose: 10 mg Documented by: Nitroglycerin (Nitrostat) 0.4 mg SL PRN PRN PRN Reason: Chest Pain Stop: 04/10/19 18:36 Last Admin: 03/11/19 18:53 Dose: 0.4 mg Documented by: Ondansetron HCl (Zofran) 4 mg IV Q6H PRN PRN Reason: Nausea And Vomiting Stop: 04/10/19 20:54 Pantoprazole Sodium (Protonix) 40 mg PO DAILY [facility] Stop: 04/11/19 08:59 Last Admin: 03/12/19 08:01 Dose: 40 mg Documented by: Ranitidine HCl (Zantac) 150 mg PO BID PRN PRN Reason: Acid Reflux Stop: 04/10/19 20:59 Vitamin D (Vitamin D3) 2,000 units PO DAILY [facility] Stop: 04/11/19 08:59 Last Admin: 03/12/19 07:59 Dose: 2,000 units Documented by: (1) Chest pain Chest pain type: unspecified Qualified Code(s): R07.9 - Chest pain, unspecified
--- NOTE | 2019-03-12 11:34 | Infectious Disease Consult ---
Date of Consultation March 12, 2019 Assessment & Plan (1) AMI (acute myocardial infarction): no clear evidence of MAC infection. discussed with pulm, will repeat ct as no recent imaging. She does not have pulm symptoms and would not place this pt on prolonged multiple abx for suspected mac due to high level of side effects and DDI with cardiac meds. No addtional ID recs at this time. History of Present Illness Attending Physician: Hafsa Garcia, pt admitted with sob and cp, EKG changes and + troponin noted, underwent cath, tolerated well. no significant change, cardio following. denies cp on my exam, eating lunch. ID asked to eval as she has chronic fatigue and pulm MAC of concern. was also evaluated by pulm this morning, discessed case. She had ct chest in 06/2018 with nonspecific findings of edema vs pnuemonitis. CXR this admission negative. has very rare dry cough, no ferrer, no sob, no productive cough, no hemoptysis, no ferrer. no f/c. no + cultures for MAC. afebrile. currently on no abx, wbc 13, creat 1.0. no cp, sob, cough, ferrer, no abd pain, no n/v/d. appetite stable, no gu symptoms. Allergies Allergy/AdvReac Type Severity Reaction Status Date / Time acetaminophen [From Lortab] Allergy Unknown Unverified 03/11/19 19:41 celecoxib [From Celebrex] Allergy Unknown Unverified 03/11/19 19:41 hydrocodone [From Lortab] Allergy Unknown Unverified 03/11/19 19:41 latex Allergy Unknown Unverified 03/11/19 19:41 ramipril [From Altace] Allergy Unknown Unverified 03/11/19 19:41 rosuvastatin [From Crestor] Allergy Unknown Unverified 03/11/19 19:41 simvastatin [From Zocor] Allergy Unknown Unverified 03/11/19 19:41 sotalol [From Betapace] Allergy Unknown Unverified 03/11/19 19:41 topiramate Allergy Unknown Unverified 03/11/19 19:41 verapamil Allergy Unknown Unverified 03/11/19 19:41 morphine AdvReac Nausea Verified 03/06/19 11:22 Home Medications Home Medications Medication Instructions Recorded Confirmed Type Eliquis 2.5 mg PO BID 03/08/18 03/11/19 History acetaminophen [Tylenol] 650 mg PO Q4H PRN 03/08/18 03/11/19 History amiodarone 200 mg PO DAILY 03/08/18 03/11/19 History amoxicillin 2,000 mg PO DIRECTED PRN 03/08/18 03/11/19 History ascorbic acid (vitamin C) 1,000 mg PO DAILY 03/08/18 03/11/19 History cyanocobalamin (vitamin B-12) 1,000 mcg PO DAILY 03/08/18 03/11/19 History [Vitamin B-12] fluticasone propionate 2 spray INTRANASAL HS 03/08/18 03/11/19 History furosemide 40 mg PO DAILY 03/08/18 03/11/19 History levothyroxine 88 mcg PO DAILY 03/08/18 03/11/19 History losartan 100 mg PO DAILY 03/08/18 03/11/19 History magnesium chloride [Mag 64] 64 mg PO BID 03/08/18 03/11/19 History montelukast 10 mg PO PM 03/08/18 03/11/19 History nitroglycerin 0.4 mg SUBLINGUAL UD PRN 03/08/18 03/11/19 History potassium chloride 10 meq PO BID 03/08/18 03/11/19 History albuterol sulfate [Ventolin HFA] 2 puff INHALATION Q4H PRN 06/03/18 03/11/19 History docusate sodium [Colace] 200 mg PO DAILY PRN 06/03/18 03/11/19 History amlodipine 5 mg PO DAILY #30 tab 06/05/18 03/11/19 Rx atorvastatin [Lipitor] 10 mg PO DAILY #30 tab 06/05/18 03/11/19 Rx loratadine [Claritin] 10 mg PO DAILY 10/06/18 03/11/19 History dextromethorphan-guaifenesin 1 tab PO Q12H PRN 02/26/19 03/11/19 History [Mucinex DM] magnesium hydroxide [Milk of 15 ml PO DAILY PRN 02/26/19 03/11/19 History Magnesia] benzonatate 100 mg capsule 100 mg PO TID PRN 03/06/19 03/11/19 History pantoprazole 40 mg tablet,delayed 40 mg PO DAILY tab 03/06/19 03/11/19 History release camphor-eucalyptus oil-menthol 1 applic TOPICAL BID PRN 03/11/19 03/11/19 History [Vicks Vaporub] cholecalciferol (vitamin D3) 2,000 unit PO DAILY 03/11/19 03/11/19 History [Vitamin D3] escitalopram oxalate 10 mg PO DAILY 03/11/19 03/11/19 History ranitidine HCl 150 mg PO BID PRN 03/11/19 03/11/19 History white petrolatum [Vaseline White 1 applic TOPICAL HS 03/11/19 03/11/19 History Petroleum] ranolazine ER 500 mg 500 mg PO BID #60 tab 03/12/19 Rx tablet,extended release,12 hr Patient History Medical History Ileus Ischemic cardiomyopathy LBBB (left bundle branch block) (Acute) Paroxysmal atrial fibrillation (Chronic) 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) CAD (coronary artery disease) GERD (gastroesophageal reflux disease) HTN (hypertension) (Chronic) Breast cancer Atrial fibrillation LBBB (left bundle branch block) Myocardial infarct Surgical History History of intestinal surgery (Resolved) History of parathyroid surgery (Resolved) Family History Other Family history non-contributory Social History Preferred Language: Yemeni Communication Ability: Effective Trailer Sections Assembler Required: No Beliefs That Will Affect Care: None marital status: / Current Living Situation: Personal Care Facility Other Information That Helps Us Care for You: No Feels Safe at Home: Yes Safety Concerns: Feels Safe At This Time Smoking Status: Never smoker Hx Alcohol Use: No Hx Substance Use: No Review of Systems Review of Systems: All systems reviewed & are unremarkable except as noted in HPI & below Physical Exam Constitutional: WD/WN, vitals as above Eyes: PERRL, conjunctivae normal, anicteric sclerae ENMT: external ear and nose normal, oropharynx normal Neck: normal visual inspection Respiratory: normal respiratory effort, lungs clear to auscultation Auscultation: + diminished lung sounds Cardiovascular: RRR, no murmur, no edema Gastrointestinal (Abdomen): normal bowel sounds, soft, nontender, no hepatosplenomegaly Musculoskeletal: no cyanosis or clubbing, extremities motor strength 5/5 Skin: no rashes, warm and dry Psychiatric: A+Ox3, euthymic affect Results & Data Vital Signs (Past 12 Hours) Vital Signs Temp Pulse Resp BP Pulse Ox Pulse Ox 03/12/19 11:00 37.0 C 47 L 20 171/67 H 94 03/12/19 10:33 94 03/12/19 09:00 49 L 20 94 03/12/19 08:00 37.1 C 49 L 20 177/73 H 94 03/12/19 04:00 36.8 C 50 L 18 153/59 H 95 03/12/19 02:40 50 L 22 145/57 H 93 03/12/19 01:40 46 L 18 144/64 H 94 03/12/19 00:40 36.5 C 52 L 20 122/51 L 93 03/11/19 23:40 54 L 18 144/57 H 92 PG Care Time/CCT Total # of Minutes Spent Total Time Spent with Patient: Total time spent is greater than 50% in coordination of care (as documented) at patient's floor/unit and/or counseling patient:
--- NOTE | 2019-03-12 11:43 | Pulmonary Consultation ---
Date of Consultation March 12, 2019 Assessment & Plan (1) Chronic cough: The etiology of the cough is not clear. She does have postnasal drip which has been adequately treated but without improvement in the cough. Likewise she has reflux which is treated without resolution of the cough. She has some rales heard on examination. Other etiologies such atypical infections or interstitial lung disease could be considered. The suggestion would be to do a CT of the chest without contrast. Suggest sputum for AFB to try and exclude MAC or similar chronic infection. History of Present Illness Attending Physician: Hafsa Garcia DO History of Present Illness Pulmonary consultation is requested regarding a cough. The patient is an 88-year-old female who presented to the emergency room on 03/11/2019 with a sudden onset of shortness of breath as well as some left-sided chest pain and back pain. She does have a history of coronary artery disease. It was suspected that she might have an acute coronary syndrome. She did undergo cardiac catheterization and she was found to have moderate coronary artery disease with decreased left ventricular systolic function and normal intracardiac pressures. 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 The patient has had a cough for about 6 months. It is daily. It is more so in the morning. The cough is a hacking type cough. It is mostly dry but occasionally she will bring up a small amount of sputum. She did not feel sick when it first started. She has a long-standing history of postnasal drip. She has been on fluticasone nasal spray as well as loratadine and montelukast. These have not dramatically helped the cough. Likewise she has a history of reflux. She has been on pantoprazole and ranitidine without major improvements in the cough. The cough does not bother her terribly. Occasionally it will awaken her. She denies significant shortness of breath normally. She did have shortness of breath at the time of admission when she had the acute symptoms. She resides at a personal assisted. She states she has no difficulty walking around the personal assisted in terms of her breathing peer Her past pulmonary history is negative except for having 1 or 2 episodes of outpatient pneumonia treated conservatively without difficulty. She denies having asthma tuberculosis pleurisy emphysema or other problems. The patient has been a non-smoker all of her lifetime. 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 This was when she was living in the [facility]. She did not have any known exposure to dust fumes or chemicals. She does take amiodarone. It is unknown how long she has had. Her daily dose is 200 mg. She does not appear to be on any MNAUELA inhibitors. The patient's energy level is fair. Denies visual complaints. She has a ENT symptoms already noted. Review of systems otherwise negative. Allergies Allergy/AdvReac Type Severity Reaction Status Date / Time acetaminophen [From Lortab] Allergy Unknown Unverified 03/11/19 19:41 celecoxib [From Celebrex] Allergy Unknown Unverified 03/11/19 19:41 hydrocodone [From Lortab] Allergy Unknown Unverified 03/11/19 19:41 latex Allergy Unknown Unverified 03/11/19 19:41 ramipril [From Altace] Allergy Unknown Unverified 03/11/19 19:41 rosuvastatin [From Crestor] Allergy Unknown Unverified 03/11/19 19:41 simvastatin [From Zocor] Allergy Unknown Unverified 03/11/19 19:41 sotalol [From Betapace] Allergy Unknown Unverified 03/11/19 19:41 topiramate Allergy Unknown Unverified 03/11/19 19:41 verapamil Allergy Unknown Unverified 03/11/19 19:41 morphine AdvReac Nausea Verified 03/06/19 11:22 Home Medications Home Medications Medication Instructions Recorded Confirmed Type Eliquis 2.5 mg PO BID 03/08/18 03/11/19 History acetaminophen [Tylenol] 650 mg PO Q4H PRN 03/08/18 03/11/19 History amiodarone 200 mg PO DAILY 03/08/18 03/11/19 History amoxicillin 2,000 mg PO DIRECTED PRN 03/08/18 03/11/19 History ascorbic acid (vitamin C) 1,000 mg PO DAILY 03/08/18 03/11/19 History cyanocobalamin (vitamin B-12) 1,000 mcg PO DAILY 03/08/18 03/11/19 History [Vitamin B-12] fluticasone propionate 2 spray INTRANASAL HS 03/08/18 03/11/19 History furosemide 40 mg PO DAILY 03/08/18 03/11/19 History levothyroxine 88 mcg PO DAILY 03/08/18 03/11/19 History losartan 100 mg PO DAILY 03/08/18 03/11/19 History magnesium chloride [Mag 64] 64 mg PO BID 03/08/18 03/11/19 History montelukast 10 mg PO PM 03/08/18 03/11/19 History nitroglycerin 0.4 mg SUBLINGUAL UD PRN 03/08/18 03/11/19 History potassium chloride 10 meq PO BID 03/08/18 03/11/19 History albuterol sulfate [Ventolin HFA] 2 puff INHALATION Q4H PRN 06/03/18 03/11/19 History docusate sodium [Colace] 200 mg PO DAILY PRN 06/03/18 03/11/19 History amlodipine 5 mg PO DAILY #30 tab 06/05/18 03/11/19 Rx atorvastatin [Lipitor] 10 mg PO DAILY #30 tab 06/05/18 03/11/19 Rx loratadine [Claritin] 10 mg PO DAILY 10/06/18 03/11/19 History dextromethorphan-guaifenesin 1 tab PO Q12H PRN 02/26/19 03/11/19 History [Mucinex DM] magnesium hydroxide [Milk of 15 ml PO DAILY PRN 02/26/19 03/11/19 History Magnesia] benzonatate 100 mg capsule 100 mg PO TID PRN 03/06/19 03/11/19 History pantoprazole 40 mg tablet,delayed 40 mg PO DAILY tab 03/06/19 03/11/19 History release camphor-eucalyptus oil-menthol 1 applic TOPICAL BID PRN 03/11/19 03/11/19 History [Vicks Vaporub] cholecalciferol (vitamin D3) 2,000 unit PO DAILY 03/11/19 03/11/19 History [Vitamin D3] escitalopram oxalate 10 mg PO DAILY 03/11/19 03/11/19 History ranitidine HCl 150 mg PO BID PRN 03/11/19 03/11/19 History white petrolatum [Vaseline White 1 applic TOPICAL HS 03/11/19 03/11/19 History Petroleum] ranolazine ER 500 mg 500 mg PO BID #60 tab 03/12/19 Rx tablet,extended release,12 hr Patient History Medical History Ileus Ischemic cardiomyopathy LBBB (left bundle branch block) (Acute) Paroxysmal atrial fibrillation (Chronic) 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) CAD (coronary artery disease) GERD (gastroesophageal reflux disease) HTN (hypertension) (Chronic) Breast cancer Atrial fibrillation LBBB (left bundle branch block) Myocardial infarct Surgical History History of intestinal surgery (Resolved) History of parathyroid surgery (Resolved) Family History Other Family history non-contributory Social History Preferred Language: Welsh Communication Ability: Effective Box Turner Required: No Beliefs That Will Affect Care: None marital status: / Current Living Situation: Personal Care Facility Other Information That Helps Us Care for You: No Feels Safe at Home: Yes Safety Concerns: Feels Safe At This Time Smoking Status: Never smoker Hx Alcohol Use: No Hx Substance Use: No Review of Systems Review of Systems: Negative except as noted in history of present illness. 10 systems reviewed. Physical Exam Physical Exam: The patient is a pleasant 88-year-old female who was cooperative alert and oriented. She was in no distress. Weight is 62.4 kg with a BMI of 21.5. She coughed once or twice during the exam. Temperature is 37 degrees. Pupils were reactive to light. Nares clear. She has a scar on the nose from prior skin cancer surgery. Palpation of the neck reveals no lymph nodes. She does have a scar at the base of the neck from prior parathyroidectomy. Mouth exam was unremarkable. Cardiac rate 47/min. Rhythm was regular. Blood pressure 171/67. Auscultation of the lung call revealed rales posteriorly bilaterally at the bases. Respiratory rate 20. Saturation 94% on room air. No wheezes heard. Inspection of the abdomen reveals a large scar from prior surgery. Bowel sounds normal. No tenderness to palpation or masses. Extremities showed no cyanosis clubbing or edema. Results & Data Vital Signs (Past 12 Hours) Vital Signs Temp Pulse Resp BP Pulse Ox Pulse Ox 03/12/19 11:00 37.0 C 47 L 20 171/67 H 94 03/12/19 10:33 94 03/12/19 09:00 49 L 20 94 03/12/19 08:00 37.1 C 49 L 20 177/73 H 94 03/12/19 04:00 36.8 C 50 L 18 153/59 H 95 03/12/19 02:40 50 L 22 145/57 H 93 03/12/19 01:40 46 L 18 144/64 H 94 03/12/19 00:40 36.5 C 52 L 20 122/51 L 93 03/11/19 23:40 54 L 18 144/57 H 92 Laboratory Results White blood cell count 13.03 today. Yesterday it was 18.47. Hemoglobin 12.2. Platelets 251,000. Electrolytes show sodium 139 potassium 3.9 chloride 105 bicarb 28. BUN 18 with creatinine of 1. Diagnostic Findings Chest x-ray showed no active disease in the chest. There was mild cardiomegaly. Surgical clips were noted in the left upper anterior chest. She did have a CT angios of the chest on 06/03/2018. There was no evidence of pulmonary embolic disease. Congestive heart failure was suggested. There was some patchy groundglass and small nodular opacity seen mainly in the upper lobes. 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 PG Care Time/CCT Total # of Minutes Spent Total Time Spent with Patient: Total time spent is greater than 50% in coordination of care (as documented) at patient's floor/unit and/or counseling patient:
--- NOTE | 2019-03-12 12:43 | CT Scan Report ---
CT chest wo con CT DOSE: 207.43 mGy.cm HISTORY: Dyspnea Chronic cough TECHNIQUE: Multiaxial CT images of the chest were performed without contrast. A dose lowering techni que was utilized adhering to the principles of ALARA. COMPARISON: 06/03/2018 FINDINGS: Generalized atherosclerotic change and ectasia of the thoracic aorta. Mild prominence of th e aortic root at 3.8 cm. No significant hilar or mediastinal adenopathy. Left breast implant joint evidence for partial collapse. Lungs demonstrate subtle reticulonodular type change involving the lingula as well as medial aspect o f the right middle lobe. Components of this have been present previously. This potentially represents a combination of chronic and potentially nonspecific pneumonitis-type change. No focal well-defined consolidative infiltrates. Minimal chronic pleural thickening left lung base. IMPRESSION: 1. Reticular-nodular type changes of the right middle lobe and lingula. 2. Although components of these appear chronic, possibly low-grade pneumonitis is considered. 3. Lungs otherwise appear clear. 4. No consolidative infiltrates. 5. Generalized atherosclerotic change and ectasia thoracic aorta with maximum diameter of the aortic root 3.8 cm. The above report was generated using voice recognition software. It may contain grammatical, syntax or spelling errors. Electronically signed by: George Cabrera M.D. 03/12/2019 12:42 PM
[2019-03-12] MEDS: POTASSIUM CHLORIDE 10 MEQ TABCR PO SCH (20:13)
[2019-03-12] MEDS: MONTELUKAST SODIUM 10 MG TABLET PO SCH (20:13)
[2019-03-12] MEDS: FLUTICASONE PROPIONATE NA SPR 16 GM BTL SCH (20:13)
[2019-03-13 04:31] LABS: Hematocrit (blood only) 33.9 % (37-47); Hemoglobin 11.2 g/dL (12.0-16.0); Mean Platelet Volume 8.9 fL (7.4-10.4); Platelet Count 228 K/uL (130-400); RDW Coefficient of Variation 14.1 % (11.5-14.5); RDW Standard Deviation 46.2 fL (36.4-46.3); Red Blood Count 3.81 M/uL (4.2-5.4); White Blood Count 5.99 K/uL (4.8-10.8)
[2019-03-13 04:48] LABS: Creatinine Clr Calc Pharmacy 40.2 ml/min; Est GFR (African American) 62.8; Est GFR (Non-African American) 54.2; Potassium 3.6 mmol/L (3.5-5.1)
[2019-03-13] MEDS: LEVOTHYROXINE SODIUM 88 MCG TABLET PO SCH (06:38)
[2019-03-13] MEDS: CYANOCOBALAMIN 500 MCG TABLET (VITAMIN B-12) PO SCH (08:21)
[2019-03-13] MEDS: ATORVASTATIN 10 MG TAB PO SCH (08:21)
[2019-03-13] MEDS: LORATADINE 10 MG TAB PO SCH (08:21)
[2019-03-13] MEDS: CHOLECALCIFEROL 1,000 UNITS TAB PO SCH (08:21)
[2019-03-13] MEDS: PANTOprazole 40 MG TAB PO SCH (08:21)
[2019-03-13] MEDS: ESCITALOPRAM OXALATE 10 MG TAB PO SCH (08:22)
[2019-03-13] MEDS: LOSARTAN POTASSIUM 50 MG TAB PO SCH (08:22)
[2019-03-13] MEDS: METOPROLOL TARTRATE 25 MG TAB PO SCH (08:23)
[2019-03-13] MEDS: AMIODARONE 200 MG TAB PO SCH (08:23)
[2019-03-13] MEDS: POTASSIUM CHLORIDE 10 MEQ TABCR PO SCH (08:23)
[2019-03-13] MEDS: ASCORBIC ACID 500 MG TAB PO SCH (08:23)
[2019-03-13] MEDS: APIXABAN 2.5 MG TAB PO SCH (08:24)
[2019-03-13] MEDS ORDERED: FUROSEMIDE 40 MG TAB PO SCH (09:00)
--- NOTE | 2019-03-13 12:51 | Cardiology Progress Note ---
Date of Service March 13, 2019 Assessment & Plan (1) Elevated troponin: Suggestive of an acute coronary syndrome, however, coronary anatomy showed no obstructive disease. Could consider takotsubo syndrome, however, her troponin elevation was quite minimal. Echocardiogram difficult to interpret as she has a history of an apical akinetic segment. Would discontinue metoprolol as her resting bradycardia may present an issue. She is stable for hospital discharge from a cardiac perspective. (2) CAD (coronary artery disease): Catheterization results described previously. (3) Ischemic cardiomyopathy: Left ventricular ejection fraction moderately depressed at 35-40% with apical akinesis and inferior hypokinesis. Previous LVEF estimated at 40-45% with apical akinesis. Consider a repeat echocardiogram as an outpatient. (4) LBBB (left bundle branch block): Chronic finding. (5) Paroxysmal atrial fibrillation: Tolerating rhythm control and long-term anticoagulation without difficulty. Subjective The patient is resting comfortably in the bed side chair without complaints of chest pain or dyspnea. She is anxious for hospital discharge. Physical Exam Physical Exam: In general this is a well-developed well-nourished white female in no acute distress. HEENT exam is negative. Neck is supple with full carotid upstrokes. There are no carotid bruits. Jugular venous pressure is flat at 90. There is no thyromegaly. Cardiovascular exam reveals a regular rhythm with a normal S1 and S2. No S3, S4, or murmurs are noted. Lungs are clear without rales, rhonchi, or wheezes. Abdomen is soft and nontender without bruits. Extremities reveal intact radial artery and posterior tibial pulses bilaterally. There is no peripheral edema. 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 PG Care Time/CCT Total # of Minutes Spent Total Time Spent with Patient: Total time spent is greater than 50% in coordination of care (as documented) at patient's floor/unit and/or counseling patient:
--- NOTE | 2019-03-13 13:05 | Discharge Summary ---
Date of Service March 13, 2019 Admission HPI Per Admitting Provider HISTORY OF PRESENT ILLNESS: This is an 88-year-old female with past medical history significant for chronic systolic CHF with EF of 40-45%, paroxysmal atrial fibrillation, on Eliquis, hypertension, nonocclusive CAD, chronic left bundle-branch block, breast cancer on left side status post surgery, history of right hip fracture and status post surgery. The patient is from [facility]. She got shortness of breath and chest discomfort around 3:00 p.m. yesterday. Pain is moderate to severity, but shortness of breath was more concerning and she came to the ER. Pain in the chest radiating to back. In the ER, she was hypoxic and required oxygen and she was tachycardic. She says she was sweating when she was coming here. No nausea, no headache, no dizziness, no fever, no chills. EKG done in the ER showed left bundle-branch block and ST changes anteriorly. Troponin was elevated at 0.21. Sublingual nitroglycerin was given in the ER with some improvement of symptoms, but because of persistent chest pain and elevated troponin heart alert was activated and the patient is status post cardiac catheterization, which showed mild to moderate nonobstructive coronary artery disease, 40-50% proximal OM, 40% mid LAD at takeoff of second diagonal, 20-30% mid RCA. EF was 40-45% with apical akinesis. 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 Resting comfortably and hemodynamically stable. No nausea, no vomiting, no abdominal pain. Normal bowel and bladder movements. No blood in stool or black stools. No hematuria or dysuria. No swelling in the legs, no rash. She ambulates okay. After hip fracture, she used a walker and cane, but right now she is walking independently. Admission Exam Per Admitting Provider PHYSICAL EXAMINATION: GENERAL: The patient is alert and oriented, not in acute distress. VITAL SIGNS: Temperature 36.5, pulse 50, respiratory rate 22, blood pressure 140/57, oxygen 93% on room air. HEENT: No pallor, no icterus. NECK: No JVD, no neck masses. No carotid bruits. CARDIOVASCULAR: S1, S2 heard, regular rate and rhythm, no murmur, no gallop. RESPIRATORY SYSTEM: Normal AP diameter. No thyromegaly. No wheezing, no crackles. ABDOMEN: Soft, bowel sounds present, nontender. No distention. CENTRAL NERVOUS SYSTEM: Cranial nerves II-XII grossly intact. Nonfocal. EXTREMITIES: Right wrist dressing intact and no drainage seen. No lower extremity edema or erythema seen. Principal Diagnosis Elevated troponin Chronic cough CAD Ischemic cardia myopathy Chronic left bundle branch block Paroxysmal atrial fibrillation Discharge Data Allergies Allergy/AdvReac Type Severity Reaction Status Date / Time acetaminophen [From Lortab] Allergy Unknown Unverified 03/11/19 19:41 celecoxib [From Celebrex] Allergy Unknown Unverified 03/11/19 19:41 hydrocodone [From Lortab] Allergy Unknown Unverified 03/11/19 19:41 latex Allergy Unknown Unverified 03/11/19 19:41 ramipril [From Altace] Allergy Unknown Unverified 03/11/19 19:41 rosuvastatin [From Crestor] Allergy Unknown Unverified 03/11/19 19:41 simvastatin [From Zocor] Allergy Unknown Unverified 03/11/19 19:41 sotalol [From Betapace] Allergy Unknown Unverified 03/11/19 19:41 topiramate Allergy Unknown Unverified 03/11/19 19:41 verapamil Allergy Unknown Unverified 03/11/19 19:41 morphine AdvReac Nausea Verified 03/06/19 11:22 Consultations 03/12/19 02:46 Consult Cardiology Routine 03/12/19 10:12 Consult Pulmonology Routine 03/12/19 10:24 Consult Infectious Diseases Routine Procedures Performed Operation Date: 03/11/19 19:20 Actual Procedures s Cineradiography w/Routine Exam - Tonny Mackenzie MD p Aspiration/PCI w/OMAR for Stemi - Tonny Mackenzie MD p Cath, Left with Cors and Vent - Tonny Mackenzie MD Ordered Studies 03/11/19 19:19 CL Cath Imgs for PACS use only Stat 03/12/19 11:43 CT chest wo con Routine Hospital Course (1) Chest pain: (2) Elevated troponin: (3) CAD (coronary artery disease): (4) Ischemic cardiomyopathy: (5) LBBB (left bundle branch block): (6) Paroxysmal atrial fibrillation: 88-year-old female with a history of chronic systolic CHF with an ejection fraction 40-45%, paroxysmal atrial fibrillation, nonocclusive coronary disease presented to the emergency room from [facility] with severe shortness of breath that began a couple of hours prior to arrival. This was associated with atypical chest pain and an EKG done in the ER revealed left bundle branch block with ST changes anteriorly. Troponin was elevated at 0.21. Sublingual nitroglycerin was given in the ER with some improvement of symptoms, however, with persistent chest pain and elevated troponin a heart alert was activated. She was taken to the cardiac catheterization lab and catheterization revealed moderate nonobstructive coronary disease with 40 to 50% proximal OM, 40% mid LAD at takeoff of second diagonal, 20 to 30% mid RCA. Ejection fraction was 40 to 50% with apical akinesis. 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 Persistent bradycardia precluded continuation of the beta-dustin, however. A formal echocardiogram revealed an ejection fraction 35 to 40%, apical akinesis. She was admitted to the Hospitalist service on telemetry and Cardiology was consulted formally. Dr. Mayo who is her long-term transcription manager saw her while in the hospital. Although Takosobu's cardiomyopathy was considered a reason for her symptoms, it was not completely clear. Symptoms resolved the following morning and did not return throughout the remainder of the hospitalization. Left ventricular ejection was moderately depressed on echocardiogram at 30 to 45% with apical akinesis and inferior hypokinesis. Previous ejection fraction was estimated at 40 to 45% with apical akinesis. While hospitalized, the patient did report a chronic cough and had evidence of pneumonitis on imaging which was present 1 year ago, also. Out of concern for MAC a sputum culture was ordered and pulmonary and infectious disease were consulted. With no clear evidence of MAC infection and without pulmonary symptoms it was recommended to avoid prolonged multiple antibiotics for suspected MAC out of concern for expected side effects. Chronic cough should continue to be investigated as an outpatient with primary care doctor. At time of discharge a [id number] examination was performed revealing hemodynamically stable and afebrile patient with no concerning symptoms. She was in no acute distress on exam and had clear lungs to auscultation without evidence of rales, rhonchi cardiac exam revealed a regular rhythm with normal S1 and S2. No murmurs were noted. No peripheral edema was present. She was sent home in stable condition with close primary care follow-up recommended in addition to a 4 to 6-week follow-up with cardiology for repeat echocardiogram. Consideration was given to additional medication management. However, aspirin was avoided secondary to Eliquis use and spironolactone was thought to be a poor choice in a woman of her age. The case was discussed with the patient's son at her request, and all questions were answered. Total Time Total Time Spent Total Time Spent (In Minutes): 60 Total Time Includes: Examination of the Patient, Discharge Planning, Medication Reconciliation and Communication With Other Providers Discharge Plan Discharge Items Patient Disposition: Personal Intermediate Reason For Visit: CARDIOMYOPATHY Discharge Diagnosis: Elevated troponin Chronic cough CAD Ischemic cardia myopathy Chronic left bundle branch block Paroxysmal atrial fibrillation Activity: Resume your previous activity Non-emergency contact: Primary Care Provider Call non-emergency contact if: you have any medication questions, your symptoms worsen, your pain is not controlled, your pain is worsening, your pain is unusual for you, your pain is concerning for you and you have a fever Follow-up/Referrals: Giancarlo Mayo MD [Physician] - Chris Nolasco [place] [Primary Care Provider] - Diet: Heart Healthy Addtl Attending Provider Instructions: Please take all medications as instructed on discharge list below. Please follow-up with Cardiology in 4-6 weeks for consideration of a repeat echocardiogram and to ensure you are doing well post-hospitalization. It is recommended you follow-up with your primary care provider within one week of discharge. Please ensure you discuss your chronic cough with this provider for continued investigation. It was a pleasure taking care of you! Please call if you have any questions or problems. You can reach a [facility] hospitalist on duty at [facility] 24 hours a day by calling [phone]. Take care of yourself. Hafsa Garcia DO [facility] Pending Studies at Discharge: No Stand-Alone Forms: My [facility] Skilled Items Patient informed of condition?: Yes DNR: No Discharge Level of Care: Other Communicable Disease: No Discharge Prognosis: Stable Lines: None Urinary Catheter: No Medications and DC Order Prescriptions: Continued ranolazine [Ranexa] 500 mg tablet extended release 12 hr 500 mg PO BID Qty: 60 RF: 5 benzonatate 100 mg capsule 100 mg PO TID PRN (Reason: cough) RF: 0 magnesium hydroxide [Milk of Magnesia] 400 mg/5 mL Suspension 15 ml PO DAILY PRN (Reason: Constipation) RF: 0 Mucinex DM 30-600 mg Tablet Extended Release 12 Hr 1 tab PO Q12H PRN (Reason: cough/ congestion) RF: 0 furosemide 40 mg Tablet 40 mg PO DAILY RF: 0 cyanocobalamin (vitamin B-12) [Vitamin B-12] 1,000 mcg Tablet Extended Release 1,000 mcg PO DAILY RF: 0 ascorbic acid (vitamin C) 1,000 mg Tablet 1,000 mg PO DAILY RF: 0 acetaminophen [Tylenol] 325 mg Tablet 650 mg PO Q4H PRN (Reason: Fever Or Pain) RF: 0 amiodarone 200 mg Tablet 200 mg PO DAILY RF: 0 potassium chloride 10 mEq Tablet Extended Release 10 meq PO BID RF: 0 amoxicillin 500 mg Tablet 2,000 mg PO DIRECTED PRN (Reason: Pre Treat) RF: 0 levothyroxine 88 mcg Tablet 88 mcg PO DAILY RF: 0 nitroglycerin 0.4 mg Tablet, Sublingual 0.4 mg Sublingual UD PRN (Reason: Chest Pain) RF: 0 montelukast 10 mg Tablet 10 mg PO PM RF: 0 losartan 100 mg Tablet 100 mg PO DAILY RF: 0 fluticasone propionate 50 mcg/actuation [place],Suspension 2 spray Intranasal HS RF: 0 magnesium chloride [Mag 64] 64 mg Tablet,Delayed Release (Dr/Ec) 64 mg PO BID RF: 0 Eliquis 2.5 mg Tablet 2.5 mg PO BID RF: 0 pantoprazole [Protonix] 40 mg tablet,delayed release (DR/EC) 40 mg PO DAILY RF: 0 docusate sodium [Colace] 100 mg Capsule 200 mg PO DAILY PRN (Reason: Constipation) RF: 0 albuterol sulfate [Ventolin HFA] 90 mcg/actuation Hfa Aerosol Inhaler 2 puff INHALATION Q4H PRN (Reason: Cough/Shortness of Breath) RF: 0 atorvastatin [Lipitor] 10 mg tablet 10 mg PO DAILY Qty: 30 RF: 1 amlodipine 5 mg tablet 5 mg PO DAILY Qty: 30 RF: 1 loratadine [Claritin] 10 mg Tablet 10 mg PO DAILY RF: 0 escitalopram oxalate 10 mg Tablet 10 mg PO DAILY RF: 0 cholecalciferol (vitamin D3) [Vitamin D3] 2,000 unit Tablet 2,000 unit PO DAILY RF: 0 ranitidine HCl 150 mg Tablet 150 mg PO BID PRN (Reason: Acid Reflux) RF: 0 Vicks Vaporub 4.7-1.2-2.6 % Ointment 1 applic TOPICAL BID PRN (Reason: Unknown) RF: 0 white petrolatum [Vaseline White Petroleum] Ointment In Packet 1 applic TOPICAL HS RF: 0 Discharge Orders: Discharge Order (Routine); Ordered 03/13/19 Ordered By: Hafsa Garcia Admission Data Admit Date/Time: 03/12/19 10:33 Attending Provider: Hafsa Garcia Admit Provider: Pepe Viramontes Primary Care Provider: Chris Nolasco [place] Other Providers: Tonny Mackenzie ; Boyd Flores ; Bernie Charles Other Interventions: Discharge Summary Assessment (RN) Last Done: 03/13/19 14:05 DC Date/Time DO NOT enter until pt leaves facility: 03/13/19 15:08
== END 2019-03-13 15:08 | disposition home or self-care (01) | DRG 287 ==
LOC: ED 17:27 → 1E 19:40 → CC 19:40
DX: I51.81 Takotsubo syndrome; E03.9 Hypothyroidism, unspecified; I25.10 Atherosclerotic heart disease of native coronary artery without angina pectoris; I11.0 Hypertensive heart disease with heart failure; I44.7 Left bundle-branch block, unspecified; I48.0 Paroxysmal atrial fibrillation; Z79.899 Other long term (current) drug therapy; K21.9 Gastro-esophageal reflux disease without esophagitis; R05 Cough; I50.22 Chronic systolic (congestive) heart failure; Z79.01 Long term (current) use of anticoagulants; I24.8 Other forms of acute ischemic heart disease